=== PATIENT | male | born 1980 ===

== ENCOUNTER 2018-06-29 14:43 | Emergency (ER) | payer OTHER ==
[2018-06-29 15:15] VITALS: BP 130/84; PULSE 104; RESP 16; TEMP 98.7; O2SAT 98
--- NOTE | 2018-06-29 15:41 | ED PDOC ---
HPI: CCC, URI, Sore Throat Time Seen by Provider: 06/29/18 15:21 Chief Complaint (Nursing): ENT Problem Chief Complaint (Provider): LEFT EAR DISCOMFORT History Per: Patient (37 Y/O MALE HERE WITH ONGOING SENSATION OF 'AIR' IN LEFT EAR. DENIES ANY CHANGE IN HEARING. SEEN BY PMD AND PRESCRIBED DEBROX AND MEDROL DOSE PACK WITHOUT IMPROVEMENT OF SYMPTOMS. DENIES ANY FEVERS/CHILLS. NOTES ONGOING NASAL CONGESTION IN AM.) Past Medical History Reviewed: Historical Data, Nursing Documentation, Vital Signs Vital Signs: Last Vital Signs Temp 98.7 F 06/29/18 15:11 Pulse 104 H 06/29/18 15:11 Resp 16 06/29/18 15:11 BP 130/84 06/29/18 15:11 Pulse Ox 98 06/29/18 15:11 - Family History Family History: States: No Known Family Hx - Home Medications Home Medications: Ambulatory Orders Medication Instructions Recorded Pseudoephedrine [Sudafed Tab] 60 mg PO Q6 PRN #24 tab 06/29/18 - Allergies Allergies/Adverse Reactions: Allergies Allergy/AdvReac Type Severity Reaction Status Date / Time No Known Allergies Allergy Verified 06/29/18 15:11 Review of Systems ROS Statement: Except As Marked, All Systems Reviewed And Found Negative ENT: Positive for: Ear Pain Physical Exam - Reviewed Nursing Documentation Reviewed: Yes Vital Signs Reviewed: Yes - Physical Exam Appears: Positive for: Well, Non-toxic, No Acute Distress Head Exam: Positive for: ATRAUMATIC, NORMAL INSPECTION, NORMOCEPHALIC Skin: Positive for: Normal Color, Warm, DRY Eye Exam: Positive for: EOMI, Normal appearance, PERRL ENT: Positive for: Normal ENT Inspection Neck: Positive for: Normal, Painless ROM Cardiovascular/Chest: Positive for: Regular Rate, Rhythm Respiratory: Positive for: CNT, Normal Breath Sounds Gastrointestinal/Abdominal: Positive for: Normal Exam, Soft Back: Positive for: Normal Inspection Extremity: Positive for: Normal ROM Neurologic/Psych: Positive for: Alert, Oriented - ECG O2 Sat by Pulse Oximetry: 98 Disposition - Clinical Impression Clinical Impression: Ear problem, Nasal congestion - Patient ED Disposition Is Patient to be Admitted: No - Disposition Referrals: Mendoza Montes MD [Staff Provider] - Disposition: Routine/Home Disposition Time: 15:41 Condition: FAIR Prescriptions: Pseudoephedrine [Sudafed Tab] 60 mg PO Q6 PRN #24 tab PRN Reason: Nasal Congestion Instructions: Sinusitis in Adults Print Language: MICRONESIAN
== END 2018-06-29 15:56 | disposition home or self-care (01) ==
LOC: H.ER 14:43
DX: R09.81 Nasal congestion (principal); H92.02 Otalgia, left ear